=== PATIENT | male | born 1955 | race Caucasian/White ===

== ENCOUNTER 2017-12-18 13:59 | Emergency (ER) | payer MEDICAID ==
[~2017-12-18] VITALS: Ht 160 cm; Wt 82.0 kg
[2017-12-18 14:07] VITALS: BP 169/97
== END 2017-12-18 16:21 | disposition home or self-care (01) ==
LOC: ER 16:16
DX: K13.79 Other lesions of oral mucosa (principal); J45.909 Unspecified asthma, uncomplicated; Z88.0 Allergy status to penicillin
CPT/HCPCS: 99281

== ENCOUNTER 2018-03-06 14:27 | Emergency (ER) | payer MEDICAID ==
[~2018-03-06] VITALS: Ht 165.1 cm; Wt 73.0 kg
[2018-03-06 14:44] VITALS: BP 146/98
[2018-03-06] MEDS ORDERED: ALBUTEROL (0.5%) 2.5MG/0.5ML NEB HHN ONE (15:00)
== END 2018-03-06 16:01 | disposition left against medical advice (07) ==
LOC: ER 15:45
DX: R06.02 Shortness of breath (principal); J45.909 Unspecified asthma, uncomplicated; Z87.891 Personal history of nicotine dependence
CPT/HCPCS: 94640; 99283; J7611

== ENCOUNTER 2019-03-31 11:08 | Emergency (ER) | payer MEDICAID, MEDICARE ==
[~2019-03-31] VITALS: Ht 152.4 cm; Wt 64.0 kg
[2019-03-31] MEDS ORDERED: SODIUM CHLORIDE 0.9% 1,000 ML IV ONE (12:10)
[2019-03-31 12:34] LABS: BASOPHILS % 0.4 % (0.0-2.0); EOSINOPHILS % 0.9 % (0.0-5.0); HEMATOCRIT. 45.5 % (42.0-52.0); HEMOGLOBIN. 15.3 g/dL (14.0-18.0); LYMPHOCYTES % 8.6 % (20.0-50.0); MEAN CORPUSCULAR HEMOGLOBIN 29.1 pg (28.0-32.0); MEAN CORPUSCULAR VOLUME 86.4 fL (80.0-94.0); MEAN PLATELET VOLUME 8.4 fl (7.4-10.4); MONOCYTES % 4.1 % (2.0-8.0); PLATELET 241 x1000/uL (130-400); RED BLOOD CELL COUNT 5.27 mill/uL (4.7-6.1); RED CELL DISTRIBUTION WIDTH 14.8 % (11.6-14.6)
[2019-03-31 12:40] LABS: CHLORIDE 103 mEq/L (98-107)
[2019-03-31 12:44] LABS: ETHANOL BLOOD < 10 mg/dL
[2019-03-31] MEDS ORDERED: MECLIZINE 25MG TABLET PO ONE (13:00)
[2019-03-31 14:11] LABS: CLARITY URINE CLEAR (CLEAR); COLOR URINE YELLOW (YELLOW); KETONES URINE NEGATIVE (NEGATIVE); LEUKOCYTE ESTERASE URINE NEGATIVE (NEGATIVE); NITRITE URINE NEGATIVE (NEGATIVE); OCCULT BLOOD URINE NEGATIVE (NEGATIVE); PH URINE 7.5 (4.5-8.0); PROTEIN URINE NEGATIVE (NEGATIVE); SPECIFIC GRAVITY URINE 1.009 (1.005-1.030); UROBILINOGEN URINE 0.2 E.U./dL (0.2-1.0)
[2019-03-31 14:31] LABS: *AMPHETAMINES SCREEN URINE NEGATIVE (NEGATIVE); *BARBITURATES SCREEN URINE NEGATIVE (NEGATIVE); *BENZODIAZEPINES SCREEN URINE NEGATIVE (NEGATIVE); *COCAINE SCREEN URINE NEGATIVE (NEGATIVE)
[2019-03-31 14:32] LABS: CANNABINOID URINE SCREEN NEGATIVE (NEGATIVE); METHADONE URINE SCREEN NEGATIVE (NEGATIVE); PHENCYCLIDINE URINE SCREEN NEGATIVE (NEGATIVE)
[2019-03-31 14:34] LABS: OPIATES URINE SCREEN NEGATIVE (NEGATIVE)
[2019-03-31 16:05] VITALS: BP 135/94
== END 2019-03-31 16:10 | disposition home or self-care (01) ==
LOC: ER 11:08
DX: H81.10 Benign paroxysmal vertigo, unspecified ear (principal); E78.00 Pure hypercholesterolemia, unspecified; J45.909 Unspecified asthma, uncomplicated; Z88.0 Allergy status to penicillin; Z87.891 Personal history of nicotine dependence
CPT/HCPCS: 36415; 71045; 80053; 80305; 80320; 81003; 83690; 85025; 87804; 93005; 96360; 96361; 99284; J7030; J8597; G0480

== ENCOUNTER → 2020-06-16 | Outpatient (CLI) | payer MEDICAID | END | disposition home or self-care (01) | LOC: LAB 09:52 | PROVIDERS: ATTEND Surgery | DX: Z01.812 Encounter for preprocedural laboratory examination (principal); Z20.828 Contact with and (suspected) exposure to other viral communicable diseases | CPT/HCPCS: C9803; U0003 ==

== ENCOUNTER → 2020-06-20 | Day surgery (SDC) | payer MEDICAID ==
[~2020-06-20] VITALS: Ht 165.1 cm; Wt 72.6 kg
[~2020-06-20] MED LIST: ALBU90AE IH; BUPIVACAINE HCL 0.5% (5MG/ML) 50ML ONE; BUPIVACAINE HCL/PF 0.5% (5MG/ML) 10ML ONE; CEFAZOLIN SODIUM 1000MG/VIAL ONE; DEXAMETHASONE 4MG/ML 1ML VIAL ONE; ESCI5TAB PO; EZET10TA13 PO; HYDROMORPHONE HCL/PF 2MG/ML (OR) ONE; HYDROMORPHONE HCL/PF 2MG/ML CPJ IV PRN; LABETALOL 5MG/ML SYR 20 MG/4 ML SYRINGE IV PRN; LACTATED RINGERS 1,000 ML IV SCH; LIDOCAINE 1%/EPI 1:200,000 10 ML VIAL IJ ONE; MECL-115 PO; MELO-105 PO; MEPERIDINE HCL/PF 25MG/ML CPJ IV PRN; ONDANSETRON HCL 4MG/2ML INJ IV PRN; RANI-655 PO; SIMV-46 PO
== END | disposition home or self-care (01) ==
LOC: OR 06:00
PROVIDERS: ATTEND Surgery
DX: K64.8 Other hemorrhoids (principal); K64.4 Residual hemorrhoidal skin tags; E78.00 Pure hypercholesterolemia, unspecified; J45.909 Unspecified asthma, uncomplicated; K21.9 Gastro-esophageal reflux disease without esophagitis; M19.90 Unspecified osteoarthritis, unspecified site; F41.9 Anxiety disorder, unspecified; F32.9 Major depressive disorder, single episode, unspecified; Z79.899 Other long term (current) drug therapy; Z98.890 Other specified postprocedural states; Z88.0 Allergy status to penicillin; Z87.891 Personal history of nicotine dependence
CPT/HCPCS: 46255; 88304; J0690; J1100; J1170; J3490